=== PATIENT | male | born 1960 | race Hispanic/Latino ===

== ENCOUNTER 2017-11-09 20:57 | Emergency (ER) | payer OTHER ==
[2017-11-09] MEDS ORDERED: AMLODIPINE BESYL5 M1 PO ×2 (21:23→22:22)
[2017-11-09] MEDS ORDERED: LOSARTAN POTASS50 M1 PO (21:23)
--- NOTE | 2017-11-09 22:01 | ED THROAT/DENTAL COMPLAINT ---
History of Present Illness General Chief Complaint: Sore Throat, Dental Pain Stated Complaint: "MY TOOTH IS HURTING" Source: patient Exam Limitations: no limitations Vital Signs & Intake/Output Vital Signs & Intake/Output Vital Signs Date Time Temp Pulse Resp B/P B/P Pulse O2 O2 Flow FiO2 Mean Ox Delivery Rate 11/09 2221 78 186/94 11/09 2211 180/80 11/09 2120 Room Air 11/09 2120 180/98 11/09 2102 98.0 100 20 160/94 99 Allergies Coded Allergies: NO KNOWN ALLERGIES (03/23/16) Reconcile Medications Amlodipine Besylate 5 MG TABLET 1 TAB PO DAILY HTN (Reported) Amlodipine Besylate 5 MG TABLET 1 TAB PO DAILY BLOOD PRESSURE Amoxicillin/Clavulanate Potass (Amox-Clav 875-125 MG Tablet) 875 MG-125 MG TABLET 1 TAB PO BID TOOTH Losartan Potassium 50 MG TABLET 1 TAB PO DAILY HTN (Reported) Oxycodone HCl/Acetaminophen (Percocet 5-325 MG Tablet) 5 MG-325 MG TABLET 1 TAB PO BID TOOTH Triage Note: PT CO PAIN TO TOOTH HAS NOT TRIED ANY OTC MEDS STARTED TONIGHT Triage Nurses Notes Reviewed? yes HPI: 57M PMH HTN, non-compliant with his medications, with acute onset of left upper tooth pain after biting into something, pain has persisted and is severe. Denies fever, chills, n/v, neck stiffness, vision changes, ear pain, confusion, chest pain,SOB. BP was 180/90 on admission but asmyptomatic. Last took his Amlodipine 3 months ago. Past History Travel History Traveled to [place] past 21 day No Medical History Any Pertinent Medical History? see below for history Neurological: NONE EENT: NONE Cardiovascular: NONE Respiratory: NONE Gastrointestinal: NONE Hepatic: NONE Renal: NONE Musculoskeletal: NONE Psychiatric: NONE Endocrine: NONE Surgical History Surgical History: non-contributory Psychosocial History What is your primary language Bulgarian Tobacco Use: Current Daily Use Daily Tobacco Use Amount/Type: => 5 Cigarettes daily Family History Hx Contributory? No Review of Systems Review of Systems Constitutional: Reports: no symptoms. EENTM: Reports: blurred vision. Respiratory: Reports: no symptoms. Cardiovascular: Reports: no symptoms. GI: Reports: no symptoms. Genitourinary: Reports: no symptoms. Musculoskeletal: Reports: no symptoms. Skin: Reports: no symptoms. Neurological/Psychological: Reports: no symptoms. Hematologic/Endocrine: Reports: no symptoms. Immunologic/Allergic: Reports: no symptoms. All Other Systems: Reviewed and Negative Physical Exam Physical Exam General Appearance: well developed/nourished, no apparent distress Head: atraumatic, normal appearance Eyes: Bilateral: normal appearance. Ears: Bilateral: canal normal, Tympanic normal. Nose: normal inspection Mouth/Throat: left upper tooth abscess Neck: normal inspection, supple, full range of motion Cardiovascular/Respiratory: normal breath sounds, normal peripheral pulses, regular rate/rhythm Back: normal inspection, normal range of motion Neurologic/Psych: awake, alert, oriented x 3, normal mood/affect Skin: intact, normal color, warm/dry Core Measures ACS in differential dx? No Sepsis Present: No Sepsis Focused Exam Completed? No Progress Differential Diagnosis: aspirated tooth, carious tooth, epiglottitis, Ludwigs angina, meningitis, odontogenic abscess, april-tonsillar abscess, pharyngeal for. body, stomatitis/gingivitis, strep pharyngitis, tooth fracture Plan of Care: Dental abscess, no drainage or evidence of spread. Will start Augmentin and refer to dentist. BP elevated but asymptomatic and non-compliant with medications for 3 months. Will restart home Amlodipine and discharge home with outpatient follow up. Departure Departure Disposition: HOME OR SELF CARE Condition: Stable Clinical Impression Primary Impression: Tooth abscess Referrals: Patient Has No Primary Care Dr Additional Instructions: See a dentist as soon as possible. Follow up with your primary care physician. Take your blood pressure medications as prescribed. Return to ER if you experience fever,chills, worsening tooth pain, neck stiffness, headache, sensitivity to light, chest pain, shortness of breath. Departure Forms: Customer Survey General Discharge Information Prescriptions: Current Visit Scripts Amoxicillin/Clavulanate Potass (Amox-Clav 875-125 MG Tablet) 1 TAB PO BID #20 TAB Oxycodone HCl/Acetaminophen (Percocet 5-325 MG Tablet) 1 TAB PO BID #10 TAB Amlodipine Besylate 1 TAB PO DAILY #30 TAB
[2017-11-09 22:12] VITALS: BP 180/80
[2017-11-09] MEDS ORDERED: AMOX-CLAV 875-1 EACH PO (22:22)
[2017-11-09] MEDS ORDERED: PERCOCET 5-3251 EACH PO (22:22)
== END 2017-11-09 22:40 ==
LOC: ERH 20:57
DX: K04.7 Periapical abscess without sinus (principal)